=== PATIENT | female | born 2000 | race Caucasian/White ===

== ENCOUNTER 2023-02-25 21:06 | Inpatient (IN) | payer OTHER ==
[~2023-02-25] VITALS: Ht 167.6 cm; Wt 125.5 kg
[2023-02-25] VITALS (8 sets, daily range): BP systolic 141–192; BP diastolic 83–112; PULSE 60–76; TEMP 98.3–99.2
--- NOTE | 2023-02-25 21:25 | NUR ---
2124- PT PRESENTS TO LDR PER WHEELCHAIR COMPLAINING OF CONTRACTIONS, TO ROOM LR2, CHANGED INTO GOWN. 2132- EFM X2 APPLIED. PT DENIES LEAKING FLUID, STATES SHE HAS HAD SOME SPOTTING SINCE BEING CHECKED IN THE OFFICE EARLIER TODAY. STATES SHE IS FEELING BABY MOVE. CONTRACTIONS STARTED EARLIER THIS EVENING. PLAN OF CARE FOR LABOR CHECK DISCUSSED AND QUESTIONS ANSWERED. 2136- BLOOD PRESSURE ELEVATED BUT PT IS MOVING AROUND IN BED. SHE DENIES BLURRY VISION, HEADACHE, RUQ PAIN, OR NAUSEA VOMITTING. WILL RECHECK BLOOD PRESSURE. PT DOES STATE SHE HAS BEEN SICK AND TESTED POSITIVE FOR COVID ON THURSDAY (02-22-23). SYMPTOMS STARTED 02-19-23 AND SHE IS CURRENTLY WEARING A MASK. 2142- SVE BY THIS NURSE UNCHANGED FROM OFFICE WITH NO FLUID POOLING OR BLEEDING NOTED. LARGE AMOUNT OF CLUMPY WHITE DISCHARGE WITH CHECK. 2144- DR CACERES UPDATED AT DESK CHARTED.
--- NOTE | 2023-02-25 22:41 | NUR ---
PATIENT TO L&D WITH C/O CONTRACTIONS SINCE THIS AFTER NOON. STATES SHE WAS CHECKED IN THE OFFICE THIS AFTERNOON. STATES SHE HAD COVID SYMPTOMS ON 02/19 TESTED POSITIVE ON 02/22. WEARING A MASK. DENIES SROM OR BLEEDING.
[2023-02-26] VITALS (44 sets, daily range): BP systolic 101–195; BP diastolic 57–108; PULSE 61–115; TEMP 97.1–98.2
[2023-02-26 00:16] LABS: COLLECTION METHOD CLEAN CATCH
[2023-02-26 00:25] LABS: BASO % 0.3 % (0.0-2.0); EOS # 0.1 K/mm3 (0.0-0.7); EOS % 1.3 % (0.0-4.0); GRAN % 54.5 % (42.2-75.2); HEMOGLOBIN 10.7 g/dl (12.5-16.0); LYMPH # 3.4 K/mm3 (1.2-3.4); LYMPH % 37.6 % (20.0-51.0); MEAN CELL VOLUME 88 fl (80.0-100.0); MEAN CORPUSCULAR HEMOGLOBIN 29 pg (27-31); MEAN CORPUSCULAR HGB CONC 33 g/dl (33.0-37.0); MONO # 0.6 K/mm3 (0.1-0.6); PLATELET COUNT 344 K/mm3 (130-400); RED BLOOD COUNT 3.65 M/mm3 (4.10-5.30); REDCELL DISTRIBUTION WIDTH-CV 12.1 % (11.5-14.5)
[2023-02-26 00:26] LABS: HEMATOCRIT 32.2 % (37.0-47.0)
[2023-02-26 00:31] LABS: PH 5.5 (5.0-8.5); URINE APPEARANCE Clear (CLEAR/HAZY); URINE BLOOD TRACE-LYSED (NEGATIVE); URINE COLOR Yellow (YELLOW); URINE GLUCOSE Negative (NEGATIVE); URINE KETONE Negative (NEGATIVE); URINE NITRATE Negative (NEGATIVE); URINE PROTEIN(semi-quant) 2+ (NEGATIVE); URINE UROBILINOGEN 0.2 E.U/dL (0.2-1.0)
[2023-02-26 00:33] LABS: MUCOUS Present (NOT PRESENT); SQUAMOUS EPITHELIAL 0-2 /hpf (0-10); URINE BACTERIA Rare /hpf (NONE SEEN); URINE RBC 0-2 /hpf (0-2); URINE WBC 0-2 /hpf (0-2)
[2023-02-26 00:42] LABS: ALBUMIN 2.5 gm/dL (3.5-5.0); BILIRUBIN,TOTAL 0.2 mg/dL (0.2-1.2); CALCIUM 8.7 mg/dL (8.4-10.2); CREATININE, serum 0.63 mg/dL (0.57-1.11); POTASSIUM 4.5 mmol/L (3.5-4.5); TOTAL PROTEIN 6.8 gm/dL (6.2-8.1)
--- NOTE | 2023-02-26 00:56 | NUR ---
LABS DRAWN AND PATIENT VOIDS FOR SAMPLE. DR CACERES REQUEST TO BE CALLED WITH LABS.
--- NOTE | 2023-02-26 02:06 | NUR ---
DR CACERES CALLED WITH LAB RESULTS. ORDERS TO CONTINUE TO MONITOR
--- NOTE | 2023-02-26 04:18 | NUR ---
DR CACERES HERE REVIIEWS MONITOR
--- NOTE | 2023-02-26 04:25 | NUR ---
CONTRACTIONS MORE REGULAR PATIENT CATAGORY 1.
--- NOTE | 2023-02-26 04:37 | NUR ---
PATIENT UP TO BATHROOM VOIDS WITHOUT DIFF.
--- NOTE | 2023-02-26 04:41 | NUR ---
IV STARTED TO RIGHT FOREARM PER PCR.DIANE THIS NURSE ATTEMPTED 2 TIMES PCR.JOSIAH ATTEMPTED 2 TIMES GETTING THE IV STARTED ON THE SECOND TIME . HYDROLAZEN 10 MG GIVEN IV PATIENT TOMERATED WELL.
--- NOTE | 2023-02-26 05:48 | NUR ---
PIT UP 2 VERAFIERS. PATIENT TOLERATED WELL
--- NOTE | 2023-02-26 06:10 | NUR ---
PATIENT UP TO BATHROOM VOIDS WITHOUT DIFF. STATES SHE HAD A SMALL BM STATES IT JUST FEEL OUT. STATES FEELS MUCH BETTER.
--- NOTE | 2023-02-26 06:26 | NUR ---
ANESTH HERE PATIENT SITTING ON EDGE PF BED FOR EPIDURAL. POSITIONED FOR START. TIME OUT DONE.
--- NOTE | 2023-02-26 06:33 | NUR ---
PATIENT INSTRUCTED ON HOW TO MOVE IN BED. STATES UNDERSTANDING OF ALL INFORMATION. RETUNED TO SEMI FOWLERS TILTED TO LEFT.
--- NOTE | 2023-02-26 06:40 | NUR ---
PATIENT COMFORTABLE RESTING WR. DENIES NEEDS AT THIS TIME
--- NOTE | 2023-02-26 06:56 | NUR ---
REPORT GIVEN TO DAY SHIFT. INTRODUCED TO PATIENT.
--- NOTE | 2023-02-26 08:36 | NUR ---
0828 DR CACERES WAS CALLED BECAUSE PT HAD A SMALL LIP AND WAS FEELING A STRONG URGE TO PUSH WITH CONTRACTIONS. 0830 DR CACERES AT BEDSIDE. SVE 10/100/0. CASTILLO CATHETER DC'D. 0833 AROM, CLEAR FLUID. 0836 PT BEGAN FEELING SOA SO O2 WAS APPLIED AT 10 LITERS. 0838 SPONTANIOUS VAGINAL DELIVERY OF A VIABLE FEMALE BY DR CACERES. BABY WAS PLACED SKIN TO SKIN WITH MOTHER. FOB CUT CORD. CARE OF BY NURSERY NURSE S. [facility]. 0857 PLACENTA DELIVERED SPONTANIOUSLY. MANUAL SWEEPING OF UTERUS POST PLACENTAL DELIVERY DUE TO RETAINED MEMBRANES AND BLEEDING. 0903 HEMABATE IM INJECTION IN LEFT UPPER THIGH BY ORDER OF DR CACERES DUE TO HEMORRHAGE. NOTED THAT PITOCIN BOLUS WAS NOT INFUSING, PITOCIN BOLUS STARTED AT THIS TIME. PT BEGAN FEELING LIGHT HEADED AND WAS FLUSH. O2 REAPPLIED, FAN TURNED ON, COOL RAGS PLACED ON FOREHEAD AND NECK. BP 101/49. DR CACERES RUBBING ON FUNDUS AT THIS TIME TO MINIMIZE BLEEDING. 0907 CYTOEC ADMINISTERED RECTALLY BY DR CACERES DUE TO PPH. 0910 BLEEDING UNDER CONTROL AT THIS TIME. COLOR RETURNS TO PT CHEEKS. 0915 PT BP IS RETURNING TO BASELINE. BLEEDING IS MINIMAL. WILL CONTINUE TO MONITOR BLOOD PRESSURES AND BLEEDING.
[2023-02-26 14:44] LABS: BASO % 0.1 % (0.0-2.0); EOS % 0.1 % (0.0-4.0); GRAN % 77.5 % (42.2-75.2); LYMPH # 2.8 K/mm3 (1.2-3.4); LYMPH % 16.6 % (20.0-51.0); MEAN CELL VOLUME 86 fl (80.0-100.0); MEAN CORPUSCULAR HGB CONC 33 g/dl (33.0-37.0); MEAN PLATELET VOLUME 9.8 fl (7.4-10.4); MONO # 0.9 K/mm3 (0.1-0.6); MONO % 5.4 % (1.7-9.3); PLATELET COUNT 343 K/mm3 (130-400); RED BLOOD COUNT 3.48 M/mm3 (4.10-5.30); REDCELL DISTRIBUTION WIDTH-CV 12.2 % (11.5-14.5)
[2023-02-26 14:45] LABS: HEMOGLOBIN 9.9 g/dl (12.5-16.0); MEAN CORPUSCULAR HEMOGLOBIN 28 pg (27-31)
[2023-02-26 15:01] LABS: ALBUMIN 2.3 gm/dL (3.5-5.0); BILIRUBIN,TOTAL 0.3 mg/dL (0.2-1.2); CALCIUM 8.4 mg/dL (8.4-10.2); CREATININE, serum 0.71 mg/dL (0.57-1.11); TOTAL PROTEIN 5.9 gm/dL (6.2-8.1)
--- NOTE | 2023-02-26 15:20 | NUR ---
DR CACERES CALLED AT 1520 AND ASKED HOW THE PT'S BLOOD PRESSURE HAD BEEN. THE LAST 2 BP'S HAD BEEN 150-160'S OVER 85-90'S, WELL , WHAT THE NEWEST LABS WERE FOR THE PT. DR CACERES THEN ORDERED A SECOND DOSE OF 30MG PROCARDIA XL TO BE GIVEN NOW. AND FOR THE FUTURE DOSES IN THE MORNINGS TO BE UPPED FROM 30MG PROCARDIA XL TO 60MG PROCARDIA XL.
[2023-02-27] VITALS (7 sets, daily range): BP systolic 131–152; BP diastolic 37–96; PULSE 71–91; TEMP 97.3–98.3
[2023-02-27] MEDS ORDERED: IBU800 M1 PO (08:33)
[2023-02-27] MEDS ORDERED: FERROUS SU325 MG/TAB PO (08:33)
[2023-02-27] MEDS ORDERED: PROCARDIA XL 6060 MG PO (08:34)
[2023-02-27] MEDS ORDERED: TYLENOL 500MG500 MG PO (08:34)
--- NOTE | 2023-02-27 09:20 | NUR ---
Initial visit; Parents thanked Environmental Studies Department Chair for offering congratulations and God's blessings for the of their daughter. Environmental Studies Department Chair thanked family for choosing [facility].
[2023-02-28 04:15] VITALS: BP 156/91; PULSE 83; TEMP 98.2
[2023-02-28 04:44] LABS: MEAN CELL VOLUME 88 fl (80.0-100.0); MEAN CORPUSCULAR HGB CONC 33 g/dl (33.0-37.0); MEAN PLATELET VOLUME 9.8 fl (7.4-10.4); PLATELET COUNT 350 K/mm3 (130-400); RED BLOOD COUNT 3.14 M/mm3 (4.10-5.30); REDCELL DISTRIBUTION WIDTH-CV 12.5 % (11.5-14.5)
[2023-02-28 04:47] LABS: HEMATOCRIT 27.7 % (37.0-47.0); HEMOGLOBIN 9.1 g/dl (12.5-16.0); MEAN CORPUSCULAR HEMOGLOBIN 29 pg (27-31)
[2023-02-28 05:02] LABS: ALBUMIN 2.7 gm/dL (3.5-5.0); BILIRUBIN,TOTAL 0.1 mg/dL (0.2-1.2); CALCIUM 8.9 mg/dL (8.4-10.2); CREATININE, serum 0.65 mg/dL (0.57-1.11); POTASSIUM 4.1 mmol/L (3.5-4.5); TOTAL PROTEIN 6.8 gm/dL (6.2-8.1)
[2023-02-28 09:15] VITALS: BP 145/75; PULSE 105; TEMP 98.3
[2023-02-28 13:00] VITALS: BP 138/81; PULSE 80; TEMP 98
--- NOTE | 2023-02-28 13:15 | NUR ---
Rests in bed, alert. Blood pressure done, 138/81. Reports headache better with drinking my coffee. Discharge instructions given, verbalizes understanding.
== END 2023-02-28 16:20 | disposition home or self-care (01) | DRG 805 ==
LOC: LDRO 21:06 → LDR 02-26 02:38 → OB 02-26 15:15
PROVIDERS: ADMIT Student in an Organized Health Care Education/Training Program
PROC: 3E033VJ Introduction of Other Hormone into Peripheral Vein, Percutaneous Approach (ICD-10-PCS; 2023-02-25)
PROC: 10E0XZZ Delivery of Products of Conception, External Approach (ICD-10-PCS; principal; 2023-02-26)
PROC: 0HQ9XZZ Repair Perineum Skin, External Approach (ICD-10-PCS; 2023-02-26)
PROC: 0UQMXZZ Repair Vulva, External Approach (ICD-10-PCS; 2023-02-26)
PROC: 10907ZC Drainage of Amniotic Fluid, Therapeutic from Products of Conception, Via Natural or Artificial Opening (ICD-10-PCS; 2023-02-26)
DX: O14.94 Unspecified pre-eclampsia, complicating childbirth (principal); U07.1 COVID-19; Z37.0 Single live birth; O98.52 Other viral diseases complicating childbirth; O72.1 Other immediate postpartum hemorrhage; O70.0 First degree perineal laceration during delivery; O71.82 Other specified trauma to perineum and vulva; O99.52 Diseases of the respiratory system complicating childbirth; J98.8 Other specified respiratory disorders; J45.909 Unspecified asthma, uncomplicated; O99.344 Other mental disorders complicating childbirth; F32.A Depression, unspecified; F41.9 Anxiety disorder, unspecified; F42.9 Obsessive-compulsive disorder, unspecified; O99.214 Obesity complicating childbirth; Z3A.37 37 weeks gestation of pregnancy
CPT/HCPCS: J0360; J0690; J2590; J2795; J7120